=== PATIENT | male | born 1960 | race Caucasian/White ===

== ENCOUNTER 2022-08-13 16:39 | Outpatient (CLI) | payer OTHER, SELFPAY ==
--- NOTE | 2022-08-13 17:05 | XR_ITS ---
WS: [id number] Right ankle, 3 views, 08/13/2022 Clinical Data: ACUTE RIGHT ANKLE PAIN Comparison: None. Findings: No fractures or dislocations are seen. The ankle mortise is normal. The talus and calcaneus are unrem arkable. No soft tissue swelling over the medial or lateral malleolus is seen. There is a plantar spur and an Achilles spur. XR/XR ankle RT min 3V* [id number] Impression: Negative right ankle.
== END 2022-08-13 16:40 | disposition home or self-care (01) ==
PROVIDERS: PCP Family Medicine; Visit Provider Nurse Practitioner Family
DX: M25.571 Pain in right ankle and joints of right foot (principal)
CPT/HCPCS: 73610

== ENCOUNTER 2024-02-24 15:58 | Outpatient (CLI) | payer OTHER, SELFPAY ==
[2024-02-24 17:16] LABS: Hepatitis A Antibody IgM Non-Reactive (Nonreactive); Hepatitis B Core IgM Non-Reactive (Nonreactive); Hepatitis B Surface Antigen Non-Reactive (Nonreactive); Hepatitis C Virus Antibody Non-Reactive (Nonreactive)
== END 2024-02-24 15:59 | disposition home or self-care (01) ==
LOC: LAB 16:00
PROVIDERS: PCP Family Medicine; Visit Provider Family Medicine
DX: K50.10 Crohn's disease of large intestine without complications (principal)
CPT/HCPCS: 36415; 80074; 86480